=== PATIENT | male | born 1945 | race Caucasian/White ===

== ENCOUNTER → 2020-05-11 | Day surgery (SDC) | payer MEDICARE, OTHER ==
[2020-05-07 11:27] LABS: BASOPHILS % 0.6 % (0.0-1.0); EOSINOPHILS # (AUTO) 0.3 (0.0-0.4); EOSINOPHILS % 5.6 % (0.0-6.0); HEMATOCRIT 39.9 % (38.2-49.6); HEMOGLOBIN 13.2 g/dL (14.0-18.0); LYMPHOCYTES # (AUTO) 1.2 (1.0-3.2); MEAN CORPUSCULAR HEMOGLOBIN 30.8 pg (28-32); MEAN CORPUSCULAR HGB CONC 33.1 g/dL (31-35); MONOCYTES # (AUTO) 0.6 (0.2-0.8); MONOCYTES % 11.1 % (4.4-11.3); NEUTROPHILS # (AUTO) 2.9 (2.1-6.9); NEUTROPHILS % 58.3 % (38.7-80.0); PLATELET COUNT 166 x10e3/uL (140-360); RED BLOOD COUNT 4.29 x10e6/uL (4.3-5.7); RED CELL DISTRIBUTION WIDTH 14.6 % (11.7-14.4)
[2020-05-07 11:47] LABS: ALBUMIN 3.7 g/dL (3.5-5.0); ALBUMIN/GLOBULIN RATIO 1.2 (0.8-2.0); ANION GAP 13.1 mmol/L (8-16); CALCIUM 9.6 mg/dL (8.4-10.2); CREATININE, SERUM 1.31 mg/dL (0.72-1.25); POTASSIUM 4.1 mmol/L (3.5-5.1)
[~2020-05-11] VITALS: Ht 175.3 cm; Wt 117.9 kg
[2020-05-11] VITALS (8 sets, daily range): BP systolic 126–158; BP diastolic 60–70
[~2020-05-11] MED LIST: ALPRAZOLAM 0.5 MG TAB ONE; ASPIR 8181 MG PO; ASPIRIN 325 MG TAB ONE; CETIRIZINE HCL10 MG PO; CLOPIDOGREL75 MG PO; DIPHENHYDRAMINE HCL 25 MG CAP ONE; FAMOTIDINE20 MG PO; FENTANYL CITRATE/PF 100MCG/2 ML INJ ONE; GLIPIZIDE10 MG PO; HEPARIN SOD/SOD CHLORIDE 2,000 ML ONE; HYDROCHLOROTHIA25 MG PO; IOPAMIDOL 300MG/ML 100 ML INFUS..BTL IV ONE; LIDOCAINE HCL 2% LOCAL 20 ML VIAL ONE; LISINOPRIL10 MG PO; METOPROLOL TAR100 MG PO; MIDAZOLAM HCL 2 MG/2 ML VIAL ONE; PIOGLITAZONE45 MG PO; PRASUGREL 10 MG TAB ONE; PRAVACHOL40 MG PO; SODIUM CHLORIDE 0.9% 1000ML 1,000 ML ONE; SODIUM CHLORIDE 0.9% 50ML 50 ML ONE; VITAMIN B-121000 MCG PO; VITAMIN D3 PO; [UNRECOGNIZED DRUG - OTHER] PO
--- NOTE | 2020-05-11 11:07 | NUR ---
1107 Received pt to room ,bedside report received from [facility]. Alert oriented and appropriate, PERRLA, respirations even and unlabored to room air. Pulses x4 extremities equal and strong. Pedal pulses PT/DP X4 present palpable and marked. Cap fill brisk < 3 sec. Rt groin Mynx No gross issues pain,pallor pressure or dysrhythmia. Skin warm and dry integrity appears D/I. IV 20g to left arm. presents healthy w/o s/s of infiltration or complaint. Abdomen soft and supple. pt offered toileting, denies need to urinate or defecate. No personal affects with patient. Family at bedside. Currently w/o complaint of pain or need.ds/rn
--- NOTE | 2020-05-11 11:59 | Operative Report ---
DATE OF PROCEDURE: 05/11/2020 SURGEON: Sincere Odom MD INDICATIONS: Peripheral arterial disease, severe lifestyle-limiting claudication of both lower extremities. COMPLICATIONS: None. BLOOD LOSS: 5 mL. RECOMMENDATIONS: 1. Staged intervention on the right femoral artery via left common femoral artery approach. 2. Staged intervention on the left anterior and posterior tibial arteries. The patient has persistent claudication or ulceration. PROCEDURES PERFORMED: 1. Abdominal aorta catheter placement, abdominal aortogram. 2. Bilateral lower extremity angiograms with third-order catheter placement from the right femoral artery to the left superficial femoral artery. 3. Atherectomy and drug-coated balloon angioplasty of the left femoral artery. 4. Secondary thrombectomy of the left femoral artery. 5. Deployment of right groin Perclose closure device. 6. Ultrasound-guided access in the right femoral artery with sheath placement. 7. Conscious sedation administration, hemodynamic and neurological monitoring and recovery by wood preserving plant laborer RN, supervision by , 65 minutes. DESCRIPTION OF PROCEDURE: Access was obtained in the right common femoral artery using ultrasound guidance. An image storage was performed. A 6-Lith[place]ian sheath was placed. Abdominal aortogram demonstrated mild aneurysmal dilatation of the distal abdominal aorta with calcification. Bilateral common iliac arteries had 50% stenosis. The left femoral artery could not be visualized. Runoff down the right femoral artery demonstrated 99% stenosis of the right superficial femoral artery. The catheter was then advanced from the right femoral artery to left superficial femoral artery to visualize the left popliteal and infrapopliteal vessels, that were not well seen on the abdominal aortogram. 80% stenosis of the proximal and distal left femoral artery were noted. Tandem 80% stenosis of the left anterior tibial. Diffuse 70% to 90% stenosis of the left posterior tibial artery. A decision was made to intervene on the left femoral artery. The patient received 10,000 units of intra-arterial heparin. The lesions were crossed using a Glidewire. The wire was exchanged to a [employer]acker wire. Directional atherectomy using a HawkOne device was performed large amounts of visible thrombus, for which manual aspiration, secondary thrombectomy was needed. Balloon angioplasty with 6 mm balloons of the proximal and distal superficial femoral artery was performed without complications. Two-vessel runoff to the left foot. Right groin repaired using Perclose closure device. The patient discharged home the same day. MD MARC Solano/NAHUM /[id number]
--- NOTE | 2020-05-11 14:00 | NUR ---
1400 Pt meets DC criteria. Rt groin assessed for s/s of complication and presence of hematoma. Skin warm, dry, no discolor, and pulses present. IV removed from D/I Distal tip appears intact. VS WNL. Pt denies pain, sob, or need at this time. Family at bedside. Review of discharge paperwork and follow up instructions. lauren/rn
== END | disposition home or self-care (01) ==
LOC: CATH LAB 08:24
PROVIDERS: ATTEND Internal Medicine Interventional Cardiology
DX: I70.213 Atherosclerosis of native arteries of extremities with intermittent claudication, bilateral legs (principal); I25.708 Atherosclerosis of coronary artery bypass graft(s), unspecified, with other forms of angina pectoris; I87.2 Venous insufficiency (chronic) (peripheral); I25.2 Old myocardial infarction; I10 Essential (primary) hypertension; E78.00 Pure hypercholesterolemia, unspecified; Z98.890 Other specified postprocedural states; E11.9 Type 2 diabetes mellitus without complications; J44.9 Chronic obstructive pulmonary disease, unspecified; Z01.812 Encounter for preprocedural laboratory examination; Z11.59 Encounter for screening for other viral diseases; Z95.1 Presence of aortocoronary bypass graft
CPT/HCPCS: 36415 ×2; 37186; 37225; 75625; 76937; 80053; 82948; 85025; 87635; C1760; C1769 ×2; C1887; J2001; J2250; J3010; J7030; Q9967; 36247; 75716; 99152; 99153